=== PATIENT | female | born 2000 ===

== ENCOUNTER → 2021-07-29 | Emergency (ER) | payer OTHER ==
[~2021-07-29] VITALS: Ht 165.1 cm; Wt 48.5 kg
== END | disposition home or self-care (01) ==
LOC: ER 01:50
DX: O20.9 Hemorrhage in early pregnancy, unspecified (principal); Z3A.18 18 weeks gestation of pregnancy; O34.82 Maternal care for other abnormalities of pelvic organs, second trimester; N94.89 Other specified conditions associated with female genital organs and menstrual cycle

== ENCOUNTER 2021-08-14 15:33 | Outpatient (CLI) | payer OTHER | END 2021-08-14 16:48 | disposition home or self-care (01) | LOC: PRENATAL 15:33 | PROVIDERS: ATTEND Obstetrics & Gynecology Maternal & Fetal Medicine | DX: O35.0XX0 Maternal care for (suspected) central nervous system malformation in fetus, not applicable or unspecified (principal); O35.3XX0 Maternal care for (suspected) damage to fetus from viral disease in mother, not applicable or unspecified; Z3A.20 20 weeks gestation of pregnancy ==

== ENCOUNTER 2021-12-12 12:28 | Inpatient (IN) | payer OTHER ==
[~2021-12-12] VITALS: Ht 160 cm; Wt 2.3 kg
[2021-12-12] MEDS ORDERED: PRENATAL + DHA1 EAC1 PO (14:05)
== END 2021-12-16 15:36 | disposition home or self-care (01) | DRG 788 ==
LOC: OBS/DEL 12:28 → LDR 16:49 → OB/GYN 16:49 → O/R 12-13 07:11 → OB/GYN 12-13 08:27
PROVIDERS: ADMIT Obstetrics & Gynecology; ATTEND Obstetrics & Gynecology
PROC: 3E0P7VZ Introduction of Hormone into Female Reproductive, Via Natural or Artificial Opening (ICD-10-PCS; 2021-12-12)
PROC: 4A1HXCZ Monitoring of Products of Conception, Cardiac Rate, External Approach (ICD-10-PCS; 2021-12-12)
PROC: 3E033VJ Introduction of Other Hormone into Peripheral Vein, Percutaneous Approach (ICD-10-PCS; 2021-12-13)
PROC: 10D00Z1 Extraction of Products of Conception, Low, Open Approach (ICD-10-PCS; principal; 2021-12-13 07:00)
DX: O61.0 Failed medical induction of labor (principal); O36.5930 Maternal care for other known or suspected poor fetal growth, third trimester, not applicable or unspecified; O42.02 Full-term premature rupture of membranes, onset of labor within 24 hours of rupture; Z3A.37 37 weeks gestation of pregnancy; Z37.0 Single live birth; Z20.822 Contact with and (suspected) exposure to COVID-19